=== PATIENT | male | born 1975 | race Two or more races ===

== ENCOUNTER 2022-08-24 20:14 | Inpatient (IN) | payer OTHER ==
[~2022-08-24] VITALS: Ht 180.3 cm; Wt 83.5 kg
[2022-08-24] MEDS ORDERED: LORazepam 2MG/ML-1ML VIAL IV ONE ×2 (21:00→22:37)
[2022-08-24 21:23] LABS: Basophils # (auto) 0 10 ^3/uL (0-0.2); Basophils % (auto) 0.2 % (0.0-2.0); Eosinophils # (auto) 0 10 ^3/uL (0-0.8); Eosinophils % (auto) 0.2 % (0.0-7.0); Hemoglobin 15.5 g/dL (13.5-17.5); Lymphocytes # (auto) 2.6 10 ^3/uL (0.4-5.4); Lymphocytes % (auto) 12.4 % (10.0-50.0); Mean Corpuscular Hemoglobin 29.2 pg (28.0-32.0); Mean Corpuscular Hgb Conc. 33.7 g/dL (32.0-36.0); Mean Corpuscular Volume 86.7 fL (80.0-100.0); Monocytes # (auto) 2.1 10 ^3/uL (0-1.3); Neutrophils # (auto) 16.2 10 ^3/uL (1.6-8.6); Neutrophils % (auto) 77.2 % (37.0-80.0); Nucleated Red Blood Cells % 0.2 %; Red Cell Distribution Width 13.7 % (11.8-14.3)
[2022-08-24 21:48] LABS: Albumin 3.5 g/dL (3.4-5.0); BUN/Creatinine Ratio 20.2 (10.0-20.0); Potassium 3.9 mmol/L (3.5-5.1)
[2022-08-24 21:50] LABS: Bilirubin, Total 0.3 mg/dL (0.2-1.0); Total Protein 7.1 g/dL (6.4-8.2)
[2022-08-24] MEDS ORDERED: DEXTROSE 10% 250 ML IV ONE ×2 (22:28→22:45)
[2022-08-24] MEDS ORDERED: LORazepam 2MG/ML-1ML VIAL ONE (22:37)
[2022-08-25] MEDS ORDERED: SODIUM CHLORIDE 0.9% 1,000 ML IV ONE (01:45)
[2022-08-25] MEDS ORDERED: levETIRAcetam 500 MG/5ML INJ IV ONE (02:09)
[2022-08-25] MEDS ORDERED: MORPHINE SULFATE INJ 2 MG/ml SYRG IV PRN (03:00)
[2022-08-25] MEDS ORDERED: NITROGLYCERIN 0.4 MG SL TAB SL PRN (03:00)
[2022-08-25] MEDS ORDERED: LORazepam 2MG/ML-1ML VIAL IV PRN ×3 (03:00→19:00)
[2022-08-25] MEDS ORDERED: cefTRIAXone 1GM/50ML D5W 50 ML IV ONE (03:00)
[2022-08-25] MEDS ORDERED: ONDANSETRON HCL 4 MG/2 ML VIAL IV PRN (03:00)
[2022-08-25] MEDS ORDERED: DOCUSATE SOD 100 MG CAP PO PRN (03:00)
[2022-08-25] MEDS ORDERED: DEXTROSE (50%) 50ML SYRG IV PRN (03:15)
[2022-08-25] MEDS: SODIUM CHLORIDE 0.9% 1,000 ML IV SCH ×4 (04:17→18:14)
[2022-08-25] MEDS: InsuLIN REG 1unit/0.01ml Soln (100units/ml) SC SCH ×4 (06:56→22:00)
[2022-08-25] MEDS: ACCU-CHEK COMFORT CURVE STRIP VI SCH ×4 (07:08→22:49)
[2022-08-25 08:04] LABS: Urine Bacteria NONE SEEN /hpf (None Seen); Urine Blood Negative /uL (Negative); Urine Hyaline Cast FEW /lpf (0 - 2); Urine Specific Gravity 1.018 (1.001-1.035); Urine WBC 3 /hpf (0 - 3)
[2022-08-25 08:13] LABS: Amphetamine Screen, Urine POSITIVE (NEGATIVE); Barbiturate Scree,Urine NEGATIVE (NEGATIVE); Benzodiazephine Screen, Urine NEGATIVE (NEGATIVE); Cannabinoid Screen, Urine POSITIVE (NEGATIVE)
[2022-08-25 08:26] LABS: Alcohol, Urine < 3.0 mg/dL (0-10); Cocaine Screen, Urine NEGATIVE (NEGATIVE); Opiate Scree,Urine POSITIVE (NEGATIVE); Phencyclidine Screen, Urine NEGATIVE (NEGATIVE)
[2022-08-25] MEDS: cefTRIAXone 1GM/50ML D5W 50 ML IV SCH (09:00)
[2022-08-25] MEDS ORDERED: CLINDAMYCIN 300MG IV 50 ML IV SCH (14:00)
[2022-08-25] MEDS: CLINDAMYCIN HCL 150 MG CAP PO SCH ×2 (14:07→22:55)
[2022-08-25] MEDS: HYDROcodone-ACET 5/325MG TAB PO PRN (16:06)
[2022-08-25] MEDS: FOLIC ACID 1 MG, MULTIPLE VITAMIN 10 ML, MAGNESIUM SULF SDV 50% 8 MEQ, THIAMINE INJ 100... INJ SCH ×5 (21:30)
[2022-08-25 22:00] VITALS: BP 191/119
[2022-08-25 22:39] VITALS: BP 223/131
[2022-08-25] MEDS ORDERED: amLODIPine BESYLATE 5 MG TAB PO ONE (22:45)
[2022-08-26] MEDS: SODIUM CHLORIDE 0.9% 1,000 ML IV SCH ×4 (00:50→20:50)
[2022-08-26] MEDS: hydrALAZINE HCL 20 MG/ML VL IV PRN ×2 (04:46→12:27)
[2022-08-26 05:00] VITALS: BP 180/103
[2022-08-26] MEDS: InsuLIN REG 1unit/0.01ml Soln (100units/ml) SC SCH ×4 (06:18→22:00)
[2022-08-26] MEDS: CLINDAMYCIN HCL 150 MG CAP PO SCH ×3 (06:18→23:55)
[2022-08-26] MEDS: ACCU-CHEK COMFORT CURVE STRIP VI SCH ×4 (06:18→22:00)
[2022-08-26 06:22] LABS: Basophils # (auto) 0 10 ^3/uL (0-0.2); Basophils % (auto) 0.3 % (0.0-2.0); Eosinophils # (auto) 0.1 10 ^3/uL (0-0.8); Eosinophils % (auto) 0.6 % (0.0-7.0); Hematocrit 48.5 % (41.0-53.0); Hemoglobin 16.8 g/dL (13.5-17.5); Lymphocytes # (auto) 4.4 10 ^3/uL (0.4-5.4); Lymphocytes % (auto) 35.5 % (10.0-50.0); Mean Corpuscular Hemoglobin 30.1 pg (28.0-32.0); Mean Corpuscular Hgb Conc. 34.6 g/dL (32.0-36.0); Mean Corpuscular Volume 87.1 fL (80.0-100.0); Monocytes # (auto) 1.4 10 ^3/uL (0-1.3); Monocytes % (auto) 11.2 % (0.0-12.0); Neutrophils # (auto) 6.5 10 ^3/uL (1.6-8.6); Neutrophils % (auto) 52.4 % (37.0-80.0); Nucleated Red Blood Cells % 0.3 %; Red Blood Cells 5.57 10^6/uL (4.5-5.90); Red Cell Distribution Width 13.6 % (11.8-14.3); White Blood Cell 12.4 10^3/uL (4.4-10.8)
[2022-08-26 06:31] LABS: Potassium 4.1 mmol/L (3.5-5.1)
[2022-08-26 06:44] LABS: Albumin 3.3 g/dL (3.4-5.0); BUN/Creatinine Ratio 15.3 (10.0-20.0); Bilirubin, Total 0.5 mg/dL (0.2-1.0); Calcium 8.9 mg/dL (8.5-10.1); Total Protein 7.4 g/dL (6.4-8.2)
[2022-08-26] MEDS: amLODIPine BESYLATE 5 MG TAB PO SCH (08:48)
[2022-08-26 09:00] VITALS: BP 159/114
[2022-08-26] MEDS: cefTRIAXone 1GM/50ML D5W 50 ML IV SCH (11:09)
[2022-08-26] MEDS ORDERED: cloNIDine HCL 0.1 MG TAB PO PRN (12:15)
[2022-08-26 13:23] VITALS: BP 146/99
[2022-08-26] MEDS: FOLIC ACID 1 MG, MULTIPLE VITAMIN 10 ML, MAGNESIUM SULF SDV 50% 8 MEQ, THIAMINE INJ 100... INJ SCH ×5 (13:23)
[2022-08-26 20:00] VITALS: BP 157/101
[2022-08-26 22:00] VITALS: BP 156/93
[2022-08-27] MEDS: SODIUM CHLORIDE 0.9% 1,000 ML IV SCH ×3 (03:30→13:31)
[2022-08-27 05:00] VITALS: BP 130/81
[2022-08-27] MEDS: InsuLIN REG 1unit/0.01ml Soln (100units/ml) SC SCH ×4 (06:43→21:10)
[2022-08-27] MEDS: ACCU-CHEK COMFORT CURVE STRIP VI SCH ×4 (06:43→21:08)
[2022-08-27] MEDS: CLINDAMYCIN HCL 150 MG CAP PO SCH ×3 (06:43→21:07)
[2022-08-27 09:00] VITALS: BP 149/96
[2022-08-27] MEDS: amLODIPine BESYLATE 5 MG TAB PO SCH (09:30)
[2022-08-27] MEDS: cefTRIAXone 1GM/50ML D5W 50 ML IV SCH (09:30)
[2022-08-27] MEDS: FOLIC ACID 1 MG, MULTIPLE VITAMIN 10 ML, MAGNESIUM SULF SDV 50% 8 MEQ, THIAMINE INJ 100... INJ SCH ×5 (12:45)
[2022-08-27] MEDS: hydrALAZINE HCL 20 MG/ML VL IV PRN ×2 (12:45→21:26)
[2022-08-27 13:00] VITALS: BP 149/89
[2022-08-27 16:54] VITALS: BP 131/93
[2022-08-27] MEDS: HYDROcodone-ACET 5/325MG TAB PO PRN (18:24)
[2022-08-27 20:00] VITALS: BP 154/99
[2022-08-27 22:00] VITALS: BP 154/99
[2022-08-27] MEDS: ACETAMINOPHEN 325 MG TAB PO PRN (23:09)
[2022-08-28] MEDS: SODIUM CHLORIDE 0.9% 1,000 ML IV SCH ×3 (02:28→13:15)
[2022-08-28 05:00] VITALS: BP 149/88
[2022-08-28] MEDS: ACETAMINOPHEN 325 MG TAB PO PRN (05:10)
[2022-08-28] MEDS: CLINDAMYCIN HCL 150 MG CAP PO SCH (05:10)
[2022-08-28] MEDS: InsuLIN REG 1unit/0.01ml Soln (100units/ml) SC SCH ×2 (06:37→11:30)
[2022-08-28] MEDS: ACCU-CHEK COMFORT CURVE STRIP VI SCH ×2 (06:37→11:30)
[2022-08-28 08:00] VITALS: BP 154/99
[2022-08-28 09:00] VITALS: BP 171/97
[2022-08-28] MEDS: cefTRIAXone 1GM/50ML D5W 50 ML IV SCH (09:50)
[2022-08-28] MEDS: amLODIPine BESYLATE 5 MG TAB PO SCH (09:51)
[2022-08-28] MEDS ORDERED: CLIN300C8 PO (10:57)
[2022-08-28] MEDS ORDERED: THIA100T5 PO (10:57)
[2022-08-28] MEDS ORDERED: FOLI1TAB6 PO (10:57)
[2022-08-28 11:54] LABS: Hepatitis A Total Antibody Negative (Negative)
[2022-08-28] MEDS: FOLIC ACID 1 MG, MULTIPLE VITAMIN 10 ML, MAGNESIUM SULF SDV 50% 8 MEQ, THIAMINE INJ 100... INJ SCH ×5 (12:00)
[2022-08-28 12:03] LABS: Hepatitis B Surface Antibody Negative (Negative)
[2022-08-28 13:01] LABS: Hepatitis C Antibody Reactive (Negative)
[2022-08-28 13:17] VITALS: BP 156/85
== END 2022-08-28 15:28 | disposition home or self-care (01) | DRG 871 ==
LOC: ER 20:14 → EDBD 20:14 → TELE 08-25 02:54 → TELE-WESTW 08-25 22:07
PROVIDERS: ADMIT Nurse Practitioner Family; ATTEND Family Medicine
PROC: 4A00X4Z Measurement of Central Nervous Electrical Activity, External Approach (ICD-10-PCS; principal; 2022-08-25)
DX: A41.9 Sepsis, unspecified organism (principal); J69.0 Pneumonitis due to inhalation of food and vomit; R65.21 Severe sepsis with septic shock; F10.139 Alcohol abuse with withdrawal, unspecified; E11.649 Type 2 diabetes mellitus with hypoglycemia without coma; E86.0 Dehydration; F12.10 Cannabis abuse, uncomplicated; F15.10 Other stimulant abuse, uncomplicated; Y90.9 Presence of alcohol in blood, level not specified; G40.409 Other generalized epilepsy and epileptic syndromes, not intractable, without status epilepticus; I10 Essential (primary) hypertension; Z83.3 Family history of diabetes mellitus; Z82.49 Family history of ischemic heart disease and other diseases of the circulatory system; Z82.3 Family history of stroke
CPT/HCPCS: 36415; 70450; 70551; 71045; 71250; 72125; 74176; 76705; 80053; 80307; 80320; 81001; 82140; 82962; 83880; 84484; 85025; 86704; 86706; 86708; 86803; 87040; 87340; 95819; 96361; 96365; 96366; 96367; 96375; 96376; G0378; J0696; J1815; J7060